=== PATIENT | female | born 1985 | race Caucasian/White ===

== ENCOUNTER 2020-05-18 17:06 | Emergency (ER) | payer OTHER ==
[2020-05-18 17:19] VITALS: BP 115/81; PULSE 96; RESP 18; TEMP 98.2
[2020-05-18] MEDS ORDERED: MORPHINE SULFATE 4 MG/ML SYRINGE IM STA (17:45)
[2020-05-18] MEDS ORDERED: PENICILLIN VK 500MG STARTER 4 TAB BTL PO STA (17:45)
[2020-05-18] MEDS ORDERED: ACET/COD 300 MG/30 MG STARTER PACK 6 TAB BTL PO STA (17:45)
[2020-05-18] MEDS ORDERED: KETOROLAC 15 MG/ML 1 ML VIAL IM STA (17:45)
--- NOTE | 2020-05-18 17:46 | ED ---
ENT HPI - General Chief complaint: Dental/Oral Stated complaint: Tooth pain Time Seen by Provider: 05/18/20 17:23 Source: patient Mode of arrival: ambulatory Limitations: no limitations - History of Present Illness Initial comments: 34-year-old female patient presents to the emergency department today for evaluation of left upper dental pain. Patient states that she's had the pain for the last several days worsening today. States that she is unable to get into her dentist until next week. Patient states she has taken aspirin and Tylenol for pain but has not helping. She denies any trismus or difficulty swallowing. Denies fever or chills. Denies any nausea or vomiting. Patient states she has known broken teeth and needs to have them extracted. - Related Data Previous Rx's Medication Instructions Recorded Naproxen [EC-Naprosyn] 500 mg PO BID PRN #30 tablet. 05/18/20 Penicillin V Potassium [Pen Vee K] 500 mg PO Q6H #40 tablet 05/18/20 Allergies Allergy/AdvReac Type Severity Reaction Status Date / Time No Known Allergies Allergy Verified 05/18/20 17:17 Review of Systems ROS Statement: Those systems with pertinent positive or pertinent negative responses have been documented in the HPI. ROS Other: All systems not noted in ROS Statement are negative. Past Medical History Past Medical History: No Reported History History of Any Multi-Drug Resistant Organisms: None Reported Additional Past Surgical History / Comment(s): Breast reduction Past Psychological History: No Psychological Hx Reported Smoking Status: Current every day smoker Past Alcohol Use History: Occasional Past Drug Use History: None Reported General Exam Limitations: no limitations General appearance: alert, in no apparent distress, other (This is a well- developed, well-nourished adult female patient in no acute distress. Vital signs upon presentation are temperature 98.2F, pulse 96, respirations 18, blood pressure 115/81, pulse ox 98% on room air.) ENT exam: Present: mucous membranes moist, other (Multiple broken teeth. Mild gingival erythema or hyperplasia. No evidence of drainable abscess to). Absent: normal exam Respiratory exam: Present: normal lung sounds bilaterally. Absent: respiratory distress, wheezes, rales, rhonchi, stridor Cardiovascular Exam: Present: regular rate, normal rhythm, normal heart sounds. Absent: systolic murmur, diastolic murmur, rubs, gallop, clicks Neurological exam: Present: alert, oriented X3, CN II-XII intact Psychiatric exam: Present: normal affect, normal mood Skin exam: Present: warm, dry, intact, normal color. Absent: rash Course Vital Signs 05/18/20 17:13 Temperature 98.2 F Pulse Rate 96 Respiratory 18 Rate Blood Pressure 115/81 O2 Sat by Pulse 98 Oximetry Medical Decision Making - Medical Decision Making 34-year-old female patient presented to the emergency department today for evaluation of left upper dental pain. Physical exam did reveal poor dentition with mild gingival erythema and hyperplasia. We'll start pen VK. She is given pain medication here. She is instructed follow up with her dentist as soon as possible. Return parameters were discussed in detail. She verbalizes understanding and agrees with this plan. Disposition Clinical Impression: Pain, dental Disposition: HOME SELF-CARE Condition: Good Instructions (If sedation given, give patient instructions): Dental Abscess (ED), Toothache (ED) Additional Instructions: Take medications as directed. Follow-up with dentistry as soon as possible. Return to the emergency department immediately for any new, worsening, or concerning symptoms. Prescriptions: Naproxen [EC-Naprosyn] 500 mg PO BID PRN #30 tablet.dr GARBER Reason: Pain Penicillin V Potassium [Pen Vee K] 500 mg PO Q6H #40 tablet Is patient prescribed a controlled substance at d/c from ED?: No Referrals: None,Stated [Primary Care Provider] - 1-2 days Time of Disposition: 17:46
== END 2020-05-18 17:59 | disposition home or self-care (01) ==
LOC: EC 17:06
DX: K08.89 Other specified disorders of teeth and supporting structures (principal); K06.1 Gingival enlargement; F17.200 Nicotine dependence, unspecified, uncomplicated
CPT/HCPCS: 99282; 96372 ×2; J2270; J1885

== ENCOUNTER 2020-07-31 06:02 | Emergency (ER) | payer OTHER ==
[2020-07-31 06:14] VITALS: BP 137/84; PULSE 79; RESP 18; TEMP 97.8
[2020-07-31] MEDS ORDERED: LORazepam 1 MG TAB PO STA (06:25)
--- NOTE | 2020-07-31 06:36 | ED ---
Anxiety HPI - General Chief Complaint: Anxiety Stated Complaint: Anxiety Time Seen by Provider: 07/31/20 06:18 Source: patient Mode of arrival: ambulatory - History of Present Illness Initial Comments: 34-year-old female presented for chief complaint of possible panic attack. Patient states she circles her PTSD and panic disorder. She states she has no medications currently or mental health follow-up. Denies suicidal or homicidal ideations, states during her panic attacks she feels like she is going to , racing thoughts, feels like she cant breath. Patient states that has been ongoing this evening, she states if feels very typical of her attacks. Denies additional concerns complaints. Denies hx of DVT/PE, leg swelling, exogenous hormone use, cancer, IVDU, recent travel/injury or immobilization. She appears well nontoxic. - Related Data Home Medications: Previous Rx's Medication Instructions Recorded Naproxen [EC-Naprosyn] 500 mg PO BID PRN #30 tablet. 05/18/20 Penicillin V Potassium [Pen Vee K] 500 mg PO Q6H #40 tablet 05/18/20 Allergies/Adverse Reactions: Allergies Allergy/AdvReac Type Severity Reaction Status Date / Time No Known Allergies Allergy Verified 05/18/20 17:17 Review of Systems ROS Statement: Those systems with pertinent positive or pertinent negative responses have been documented in the HPI. ROS Other: All systems not noted in ROS Statement are negative. Past Medical History Past Medical History: No Reported History History of Any Multi-Drug Resistant Organisms: None Reported Additional Past Surgical History / Comment(s): Breast reduction Past Psychological History: Anxiety, Depression, PTSD Smoking Status: Current every day smoker Past Alcohol Use History: Occasional Past Drug Use History: None Reported General Exam - General Exam Comments Initial Comments: General: The patient is awake and alert, in no distress, and does not appear acutely ill. Eye: Pupils are equal, round and reactive to light, extra-ocular movements are intact. No nystagmus. There is normal conjunctiva bilaterally. No signs of icterus. Ears, nose, mouth and throat: There are moist mucous membranes and no oral lesions. Neck: The neck is supple, there is no tenderness or JVD. Cardiovascular: There is a regular rate and rhythm. No murmur, rub or gallop is appreciated. Respiratory: Lungs are clear to auscultation, respirations are non-labored, breath sounds are equal. No wheezes, stridor, rales, or rhonchi..] Musculoskeletal: Normal ROM, no tenderness. Strength 5/5. Sensation intact. Pulses equal bilaterally 2+. Neurological: A&O x 3. CN II-XII intact grossly, There are no obvious motor or sensory deficits. Coordination appears grossly intact. Speech is normal. Skin: Skin is warm and dry and no rashes or lesions are noted. Psychiatric: Cooperative, appropriate mood & affect, normal judgment. Limitations: no limitations Course Vital Signs 07/31/20 06:07 Temperature 97.8 F Pulse Rate 79 Respiratory 18 Rate Blood Pressure 137/84 O2 Sat by Pulse 98 Oximetry Medical Decision Making - Medical Decision Making 34yo female prsenting for cc of anxiety attack. hx of panic d/o. no meds currently [place] Denies other concerns presented for symptomatic treatment. EKG no specific findings. NO arrythmia. Patient case discussed with Dr. Hernández-pt discharged appearing well. Disposition Clinical Impression: Anxiety, History of posttraumatic stress disorder (PTSD), History of panic attacks Disposition: HOME SELF-CARE Condition: Good Instructions (If sedation given, give patient instructions): Generalized Anxiety Disorder (ED) Additional Instructions: Please use medication as discussed. Please follow-up with family doctor in the next 2 days. Please return to emergency room if the symptoms increase or worsen or for any other concerns. Is patient prescribed a controlled substance at d/c from ED?: No Referrals: None,Stated [Primary Care Provider] - [facility] Time of Disposition: 06:36
== END 2020-07-31 06:51 | disposition home or self-care (01) ==
LOC: EC 06:02
DX: F41.9 Anxiety disorder, unspecified (principal); F17.200 Nicotine dependence, unspecified, uncomplicated; Z86.59 Personal history of other mental and behavioral disorders
CPT/HCPCS: 93005; 99283

== ENCOUNTER 2020-07-31 20:58 | Emergency (ER) | payer OTHER ==
[2020-07-31 21:05] VITALS: BP 140/94; PULSE 104; RESP 18; TEMP 97.1
[2020-07-31] MEDS ORDERED: LORazepam 1 MG TAB PO STA ×2 (21:21→21:24)
--- NOTE | 2020-07-31 21:24 | ED ---
General Adult HPI - General Chief complaint: Anxiety Stated complaint: Anxiey Time Seen by Provider: 07/31/20 21:08 Source: patient, family, RN notes reviewed Mode of arrival: ambulatory Limitations: no limitations - History of Present Illness Initial comments: Patient is a pleasant 34-year-old female presenting to the emergency Department with complaints of anxiety. Onset of symptoms was yesterday. Patient came to the ER and received Ativan and was feeling better and slept for around 4 hours. Patient has had some increased anxiety again since that time. Patient does have history of chronic anxiety similar however this is lasting longer than normal. Patient does have an appointment with her doctor however cannot get in for another 6 days. - Related Data Previous Rx's Medication Instructions Recorded Naproxen [EC-Naprosyn] 500 mg PO BID PRN #30 tablet. 05/18/20 Penicillin V Potassium [Pen Vee K] 500 mg PO Q6H #40 tablet 05/18/20 Allergies Allergy/AdvReac Type Severity Reaction Status Date / Time No Known Allergies Allergy Verified 07/31/20 21:05 Review of Systems ROS Statement: Those systems with pertinent positive or pertinent negative responses have been documented in the HPI. ROS Other: All systems not noted in ROS Statement are negative. Constitutional: Denies: fever Eyes: Denies: eye pain ENT: Denies: ear pain Respiratory: Denies: cough Cardiovascular: Denies: chest pain Endocrine: Denies: fatigue Gastrointestinal: Denies: abdominal pain Musculoskeletal: Denies: back pain Skin: Denies: rash Neurological: Denies: weakness Psychiatric: Reports: anxiety Past Medical History Past Medical History: No Reported History History of Any Multi-Drug Resistant Organisms: None Reported Additional Past Surgical History / Comment(s): Breast reduction Past Psychological History: Anxiety, Depression, PTSD Smoking Status: Current every day smoker Past Alcohol Use History: Occasional Past Drug Use History: None Reported General Exam Limitations: no limitations General appearance: alert, in no apparent distress Head exam: Present: normocephalic Eye exam: Present: normal appearance Respiratory exam: Present: normal lung sounds bilaterally Cardiovascular Exam: Present: regular rate, normal rhythm GI/Abdominal exam: Present: soft. Absent: tenderness Extremities exam: Present: normal inspection Neurological exam: Present: alert Psychiatric exam: Present: other (Patient does appear mildly anxious) Skin exam: Present: normal color Course Vital Signs 07/31/20 21:01 Temperature 97.1 F L Pulse Rate 104 H Respiratory 18 Rate Blood Pressure 140/94 O2 Sat by Pulse 98 Oximetry Medical Decision Making - Medical Decision Making Patient and spouse are receptive to receiving a dose of oral Ativan and a second one to take home with them she needs tomorrow. Disposition Clinical Impression: Anxiety Disposition: HOME SELF-CARE Condition: Stable Instructions (If sedation given, give patient instructions): Generalized Anxiety Disorder (ED) Additional Instructions: Please follow-up with primary care physician as scheduled. Please call to try to obtain earlier appointment. Return for thoughts of self-harm, worsening symptoms or other concerns. Is patient prescribed a controlled substance at d/c from ED?: No Referrals: Lamin Delacruz [STAFF PHYSICIAN] - 1-2 days Time of Disposition: 21:24
== END 2020-07-31 21:42 | disposition home or self-care (01) ==
LOC: EC 20:58
DX: F41.9 Anxiety disorder, unspecified (principal); F17.200 Nicotine dependence, unspecified, uncomplicated
CPT/HCPCS: 99283

== ENCOUNTER 2020-08-04 18:52 | Emergency (ER) | payer OTHER ==
[2020-08-04 19:00] VITALS: BP 147/98; PULSE 74; RESP 18; TEMP 98.3
--- NOTE | 2020-08-04 19:30 | ED ---
General Adult HPI - General Chief complaint: Psychiatric Symptoms Stated complaint: Anxiety Attacks Time Seen by Provider: 08/04/20 19:03 Source: patient Mode of arrival: ambulatory Limitations: no limitations - History of Present Illness Initial comments: 34-year-old female patient presents to the emergency department today for evaluation of increased anxiety and panic attacks. Patient states she is currently living with her father which is causing a lot of stress and anxiety. He states they are working on leaving the home and will be doing so within the next week or 2. Patient states over the weekend she started to have increased general anxiety, nightmares, and panic attacks. Patient states her symptoms are lasting days. In the past she has been diagnosed with anxiety for her symptoms are only last for approximately an hour. Patient denies taking any current medication for her symptoms. States she was in the emergency department twice for this last weekend she was given Ativan which did seem to help her symptoms. States that she did call psychiatrist and they wanted to have her possibly admitted for control of symptoms though she doesn't believe this is necessary. He states that there are other recommendation was to follow-up with the primary care physician which she does have an appointment on Friday. Patient denies any current suicidal or homicidal ideation. States that she is unable to handle the panic symptoms and is requesting possible prescription for anxiety. Patient denies any recent rash, fever, chills, cough, shortness of breath, chest pain, abdominal pain, nausea, vomiting, diarrhea, constipation, back pain, numbness, tingling, dizziness, weakness, hematuria, dysuria, urinary urgency, urinary frequency, headache, visual changes, or any other complaints. - Related Data Home Medications Medication Instructions Recorded Confirmed Relaxia Supplement 1 tab PO DAILY 07/31/20 07/31/20 Valerian Root 100 mg PO DAILY 07/31/20 07/31/20 Previous Rx's Medication Instructions Recorded LORazepam [Ativan] 1 mg PO TID PRN 3 Days #9 tab 08/04/20 Allergies Allergy/AdvReac Type Severity Reaction Status Date / Time No Known Allergies Allergy Verified 08/04/20 19:00 Review of Systems ROS Statement: Those systems with pertinent positive or pertinent negative responses have been documented in the HPI. ROS Other: All systems not noted in ROS Statement are negative. Past Medical History Past Medical History: No Reported History History of Any Multi-Drug Resistant Organisms: None Reported Additional Past Surgical History / Comment(s): Breast reduction Past Psychological History: Anxiety, Depression, PTSD Smoking Status: Current every day smoker Past Alcohol Use History: Occasional Past Drug Use History: None Reported General Exam Limitations: no limitations General appearance: alert, in no apparent distress, other (This is a well- developed, well-nourished adult female patient in no acute distress. Vital signs upon presentation are temperature 98.3F, pulse 74, respirations 18, blood pressure 147/98, pulse ox 97% on room air.) Respiratory exam: Present: normal lung sounds bilaterally. Absent: respiratory distress, wheezes, rales, rhonchi, stridor Cardiovascular Exam: Present: regular rate, normal rhythm, normal heart sounds. Absent: systolic murmur, diastolic murmur, rubs, gallop, clicks GI/Abdominal exam: Present: soft, normal bowel sounds. Absent: distended, tenderness, guarding, rebound, rigid Neurological exam: Present: alert, oriented X3, CN II-XII intact Psychiatric exam: Present: anxious. Absent: homicidal ideation, suicidal ideation Skin exam: Present: warm, dry, intact, normal color. Absent: rash Course Vital Signs 08/04/20 18:57 Temperature 98.3 F Pulse Rate 74 Respiratory 18 Rate Blood Pressure 147/98 O2 Sat by Pulse 97 Oximetry Medical Decision Making - Medical Decision Making 34-year-old female patient presented to the emergency department today for evaluation of anxiety and panic attacks. Has taken Ativan in the past this has helped. Physical examination is unremarkable. She is not suicidal nor homicidal. She does have an appointment coming up on Friday to discuss possible prescription options. We will give three-day prescription for Ativan. She is instructed to use these sparingly for severe symptoms. Return parameters were discussed in detail. She verbalizes understanding and agrees with this plan. Disposition Clinical Impression: Anxiety, Panic attacks Disposition: HOME SELF-CARE Condition: Good Instructions (If sedation given, give patient instructions): Generalized Anxiety Disorder (ED), Panic Attack (ED) Additional Instructions: Take medications as directed. Follow-up with your physician as you have planned. Return to the emergency department immediately for any new, worsening, or concerning symptoms. Prescriptions: LORazepam [Ativan] 1 mg PO TID PRN 3 Days #9 tab PRN Reason: Anxiety Is patient prescribed a controlled substance at d/c from ED?: Yes When asked, does pt state using other controlled substances?: No If prescribed controlled substance>3 days was MAPS reviewed?: Prescribed <3 Days Referrals: None,Stated [Primary Care Provider] - 1-2 days Time of Disposition: 19:30
== END 2020-08-04 19:41 | disposition home or self-care (01) ==
LOC: EC 18:52
DX: F41.0 Panic disorder [episodic paroxysmal anxiety] (principal); F17.200 Nicotine dependence, unspecified, uncomplicated
CPT/HCPCS: 99283

== ENCOUNTER 2020-08-20 20:03 | Emergency (ER) | payer OTHER ==
[2020-08-20 20:09] VITALS: BP 118/78; RESP 18; TEMP 98
[2020-08-20] MEDS ORDERED: MORPHINE SULFATE 4 MG/ML SYRINGE IM STA (20:22)
[2020-08-20] MEDS ORDERED: PENICILLIN VK 500MG STARTER 4 TAB BTL PO STA (20:22)
[2020-08-20] MEDS ORDERED: MORPHINE SULFATE 2 MG/ML SYRINGE IV STA (20:23)
[2020-08-20] MEDS ORDERED: ACET/COD 300 MG/30 MG STARTER PACK 6 TAB BTL PO STA (20:24)
--- NOTE | 2020-08-20 20:25 | ED ---
General Adult HPI - General Chief complaint: Dental/Oral Stated complaint: Tooth Pain Time Seen by Provider: 08/20/20 20:10 Source: patient, RN notes reviewed, old records reviewed Mode of arrival: ambulatory Limitations: no limitations - History of Present Illness Initial comments: 34-year-old female patient ED for dental pain. Patient reports that she has a broken left upper molar that has been causing her pain lasts week in particular. She is due to have removed on Friday however the pain is worsening. She denies a chance of any fevers or any other complaints. Systemic: Pt denies fatigue, fever/chills, rash. Pt denies weakness, night sweats, weight loss. Neuro: Pt denies headache, visual disturbances, syncope or pre-syncope. HEENT: Pt denies ocular discharge or irritation, otalgia, rhinorrhea, pharyngitis or notable lymphadenopathy. Cardiopulmonary: Pt denies chest pain, SOB, heart palpitations, dyspnea on exe rtion. Abdominal/GI: Pt denies abdominal pain, n/v/d. : Pt denies dysuria, burning w/ urination, frequency/urgency. Denies new onset urinary or bowel incontinence. MSK: Pt denies myalgia, loss of strength or function in extremities. Neuro: Pt denies new onset weakness, paresthesias. - Related Data Home Medications Medication Instructions Recorded Confirmed Relaxia Supplement 1 tab PO DAILY 07/31/20 07/31/20 Valerian Root 100 mg PO DAILY 07/31/20 07/31/20 Previous Rx's Medication Instructions Recorded LORazepam [Ativan] 1 mg PO TID PRN 3 Days #9 tab 08/04/20 Penicillin V Potassium [Pen Vee K] 500 mg PO QID #40 tablet 08/20/20 Allergies Allergy/AdvReac Type Severity Reaction Status Date / Time No Known Allergies Allergy Verified 08/04/20 19:00 Review of Systems ROS Statement: Those systems with pertinent positive or pertinent negative responses have been documented in the HPI. ROS Other: All systems not noted in ROS Statement are negative. Past Medical History Past Medical History: No Reported History History of Any Multi-Drug Resistant Organisms: None Reported Additional Past Surgical History / Comment(s): Breast reduction Past Psychological History: Anxiety, Depression, PTSD Smoking Status: Current every day smoker Past Alcohol Use History: Occasional Past Drug Use History: None Reported General Exam - General Exam Comments Initial Comments: Constitutional: NAD, AOX3, Pt has pleasant affect. HEENT: NC/AT, trachea midline, neck supple, no lymphadenopathy. External ears appear normal, without discharge. Mucous membranes moist. Eyes PERRLA, EOM intact. There is no scleral icterus. No pallor noted. Poor dentition noted. Left upper back molar is broken down with mild tenderness and erythema around th e gum. No abscess. Cardiopulmonary: RRR, no murmurs, rubs or gallops, no JVD noted. Lungs CTAB in anterior and posterior hudson. No peripheral edema. Abdominal exam: Abdomen soft and non-distended. Neuro: CN II-XII grossly intact. No nuchal rigidity. No raccon eyes, no dixon sign. MSK: Full active ROM in upper and lower extremities, 5/5 stregnth. Limitations: no limitations Course Vital Signs 08/20/20 08/20/20 20:05 20:29 Temperature 98.0 F Pulse Rate 116 H 90 Respiratory 18 Rate Blood Pressure 118/78 O2 Sat by Pulse 97 Oximetry Medical Decision Making - Medical Decision Making 34-year-old female patient ED for evaluation of dental pain. Due to have teeth removed on Friday. Neck: Antibiotics. Physical exam reveals poor dentition tenderness to the tooth no abscess. Patient initiated on penicillin VK will follow-up with primary care provider and dentist and return for any worsening symptoms. Case discussed with Dr. Davis. Disposition Clinical Impression: Pain, dental Disposition: HOME SELF-CARE Condition: Stable Instructions (If sedation given, give patient instructions): Toothache (ED) Additional Instructions: Follow up with PCP and dentist tomorrow. Take antibiotics as directed. May use Tylenol #3 tomorrow for pain as needed. Return to ED with any worsening symptoms. Prescriptions: Penicillin V Potassium [Pen Vee K] 500 mg PO QID #40 tablet Is patient prescribed a controlled substance at d/c from ED?: No Referrals: None,Stated [Primary Care Provider] - 1-2 days Lamin Delacruz [STAFF PHYSICIAN] - 1-2 days
[2020-08-20 20:29] VITALS: PULSE 90
[2020-08-20] MEDS ORDERED: MORPHINE SULFATE 2 MG/ML SYRINGE IM STA (20:41)
== END 2020-08-20 21:00 | disposition home or self-care (01) ==
LOC: EC 20:03
DX: K08.89 Other specified disorders of teeth and supporting structures (principal); F17.200 Nicotine dependence, unspecified, uncomplicated
CPT/HCPCS: 99283; 96372; J2270

== ENCOUNTER 2020-09-01 17:05 | Emergency (ER) | payer OTHER ==
[2020-09-01 17:09] VITALS: BP 127/66; PULSE 102; RESP 18; TEMP 98.8
--- NOTE | 2020-09-01 17:27 | ED ---
Anxiety HPI - General Chief Complaint: Anxiety Stated Complaint: Anxiety Time Seen by Provider: 09/01/20 17:18 Source: patient, RN notes reviewed, old records reviewed Mode of arrival: ambulatory - History of Present Illness Initial Comments: 34-year-old female presents to the ER today leads of anxiety. Patient reports that she has been treated for anxiety multiple times in the hospital for the past few months. Patient reports that she is out of her Ativan and she was prescribed. She states that she has no medications to manage her symptoms at home. She states that she does have an upcoming appointment in mid September for follow-up with psychiatry. Patient states she's been having difficult time getting into until that time. Patient reports that she has no suicidal thoughts. She denies any fevers chills about pain nausea or vomiting or physical complaints. - Related Data Home Medications: Home Medications Medication Instructions Recorded Confirmed Relaxia Supplement 1 tab PO DAILY 07/31/20 07/31/20 Valerian Root 100 mg PO DAILY 07/31/20 07/31/20 Previous Rx's Medication Instructions Recorded LORazepam [Ativan] 1 mg PO TID PRN 3 Days #9 tab 08/04/20 Penicillin V Potassium [Pen Vee K] 500 mg PO QID #40 tablet 08/20/20 LORazepam [Ativan] 1 mg PO TID 3 Days #9 tab 09/01/20 Allergies/Adverse Reactions: Allergies Allergy/AdvReac Type Severity Reaction Status Date / Time No Known Allergies Allergy Verified 09/01/20 17:09 Review of Systems ROS Statement: Those systems with pertinent positive or pertinent negative responses have been documented in the HPI. ROS Other: All systems not noted in ROS Statement are negative. Past Medical History Past Medical History: No Reported History History of Any Multi-Drug Resistant Organisms: None Reported Additional Past Surgical History / Comment(s): Breast reduction Past Psychological History: Anxiety, Depression, PTSD Smoking Status: Current every day smoker Past Alcohol Use History: Occasional Past Drug Use History: None Reported General Exam - General Exam Comments Initial Comments: 34-year-old field. Alert and oriented. No acute distress. Limitations: no limitations General appearance: alert, in no apparent distress, anxious Head exam: Present: atraumatic, normocephalic, normal inspection Eye exam: Present: normal appearance, PERRL, EOMI. Absent: scleral icterus, conjunctival injection, periorbital swelling ENT exam: Present: normal exam, mucous membranes moist Neck exam: Present: normal inspection Respiratory exam: Present: normal lung sounds bilaterally Cardiovascular Exam: Present: regular rate, normal rhythm, normal heart sounds. Absent: systolic murmur, diastolic murmur, rubs, gallop, clicks GI/Abdominal exam: Present: soft, normal bowel sounds. Absent: distended, tenderness, guarding, rebound, rigid Extremities exam: Present: normal inspection, full ROM, normal capillary refill. Absent: tenderness, pedal edema, joint swelling, calf tenderness Back exam: Present: normal inspection Neurological exam: Present: alert, oriented X3, CN II-XII intact Psychiatric exam: Present: normal affect, normal mood Skin exam: Present: warm, dry, intact, normal color. Absent: rash Course Vital Signs 09/01/20 17:06 Temperature 98.8 F Pulse Rate 102 H Respiratory 18 Rate Blood Pressure 127/66 O2 Sat by Pulse 98 Oximetry Medical Decision Making - Medical Decision Making Patient is a 34-year-old female presents here today for concern for anxiety. She worsens out of her Ativan medication. Patient at this time has been given 1 dose in the emergency department for acute anxiolysis. I did discuss that she is follow-up with outpatient resources and her appointment in mid September for further prescriptions. Patient is understandable treatment plan will comply. Disposition Clinical Impression: Panic attacks, Acute anxiety Disposition: HOME SELF-CARE Condition: Good Instructions (If sedation given, give patient instructions): Generalized A nxiety Disorder (ED) Additional Instructions: Please use medication as discussed. Please follow up with family doctor if symptoms have not improved over the next two days. Please return to the emergency room if your symptoms increase or worsen or for any other concerns. Prescriptions: LORazepam [Ativan] 1 mg PO TID 3 Days #9 tab Is patient prescribed a controlled substance at d/c from ED?: Yes If prescribed controlled substance>3 days was MAPS reviewed?: Prescribed <3 Days If opioid is for acute pain is fill amount 7 days or less?: Yes If Rx opioid, was Start Talking consent form obtained?: Yes Referrals: None,Stated [Primary Care Provider] - 1-2 days Time of Disposition: 17:26
[2020-09-01] MEDS ORDERED: LORazepam 1 MG TAB PO STA (17:39)
== END 2020-09-01 17:54 | disposition home or self-care (01) ==
LOC: EC 17:05
DX: F41.0 Panic disorder [episodic paroxysmal anxiety] (principal); F17.200 Nicotine dependence, unspecified, uncomplicated
CPT/HCPCS: 99283

== ENCOUNTER 2020-09-16 12:21 | Emergency (ER) | payer OTHER ==
[2020-09-16 12:29] VITALS: BP 130/92; PULSE 95; RESP 18; TEMP 98.3
--- NOTE | 2020-09-16 12:52 | ED ---
Anxiety HPI - General Chief Complaint: Anxiety Stated Complaint: panic attacks Source: patient Mode of arrival: ambulatory - History of Present Illness Initial Comments: Patient is a 34-year-old female with past medical history of anxiety disorder presents emergency room with reported worsening anxiety. She has been seen 4 times in the emergency department since end of July for the same complaint. States she recently just moved to the area, left her family, started a new job. All of these factors are continuing to her anxiety. He does have an appointment to see her primary care doctor on Friday. This was previously scheduled a few weeks ago however she was reportedly busy with work and couldn't make it to the appointments. She has been given 3 prescriptions of Ativan when she comes to the emergency department reports that this has been helping her get through to her appointment. She states she realizes that she needs to see a primary care doctor in regards to other treatment options. Patient is requesting one final prescription to get her through to her appointment on Friday. She denies any suicidal or homicidal ideations. Denies previous hospitalization for mental health. No hallucinations. Patient denies substance abuse disorder. No concern for . No other alleviating, precipitating or modifying factors - Related Data Home Medications: Home Medications Medication Instructions Recorded Confirmed Relaxia Supplement 1 tab PO DAILY 07/31/20 07/31/20 Valerian Root 100 mg PO DAILY 07/31/20 07/31/20 Previous Rx's Medication Instructions Recorded LORazepam [Ativan] 1 mg PO TID PRN 3 Days #9 tab 08/04/20 Penicillin V Potassium [Pen Vee K] 500 mg PO QID #40 tablet 08/20/20 LORazepam [Ativan] 1 mg PO TID 3 Days #9 tab 09/01/20 LORazepam [Ativan] 0.5 mg PO TID 3 Days #9 tab 09/16/20 Allergies/Adverse Reactions: Allergies Allergy/AdvReac Type Severity Reaction Status Date / Time No Known Allergies Allergy Verified 09/16/20 12:29 Review of Systems ROS Statement: Those systems with pertinent positive or pertinent negative responses have been documented in the HPI. ROS Other: All systems not noted in ROS Statement are negative. Past Medical History Past Medical History: No Reported History History of Any Multi-Drug Resistant Organisms: None Reported Additional Past Surgical History / Comment(s): Breast reduction Past Psychological History: Anxiety, Depression, PTSD Smoking Status: Current every day smoker Past Alcohol Use History: Occasional Past Drug Use History: None Reported General Exam Limitations: no limitations Course Vital Signs 09/16/20 12:27 Temperature 98.3 F Pulse Rate 95 Respiratory 18 Rate Blood Pressure 130/92 O2 Sat by Pulse 99 Oximetry Medical Decision Making - Medical Decision Making Upon arrival patient is placed in room 16. A thorough history and physical exam was performed. Patient's urine sample is sent for a test. I did review her previous ER records. I discussed diagnosis, differential treatment options. Informed patient that she should be receiving these prescriptions her primary care office. Patient reports that she does have an appointment on Friday for which I do instruct that she keep this appointment as there are other treatment options available to her. Patient should also be evaluated by a mental health expert. She understood this. She does have a list of resources at home that she was previously prescribed. Patient will be given a three-day prescription for Ativan. Instructed not to take this medication if there is concern for . Not work or drive while taking this medication. She has any new or worsening symptoms she should return to the emergency room. Patient agreed and was discharged home in stable condition Disposition Clinical Impression: Acute anxiety Disposition: HOME SELF-CARE Condition: Stable Instructions (If sedation given, give patient instructions): Generalized Anxiety Disorder (ED) Additional Instructions: Please follow up with your PCP on Friday. They should be the one writing the prescriptions for your anxiety. Return to the ED for any new or worsening symptoms. Prescriptions: LORazepam [Ativan] 0.5 mg PO TID 3 Days #9 tab Is patient prescribed a controlled substance at d/c from ED?: Yes When asked, does pt state using other controlled substances?: No If prescribed controlled substance>3 days was MAPS reviewed?: Prescribed <3 Days Referrals: None,Stated [Primary Care Provider] - 1-2 days Time of Disposition: 13:13
[2020-09-16] MEDS ORDERED: LORazepam 1 MG TAB PO STA (13:06)
== END 2020-09-16 13:23 | disposition home or self-care (01) ==
LOC: EC 12:21
DX: F41.9 Anxiety disorder, unspecified (principal); F17.200 Nicotine dependence, unspecified, uncomplicated; Z79.899 Other long term (current) drug therapy
CPT/HCPCS: 81025; 99283

== ENCOUNTER 2020-09-27 00:24 | Emergency (ER) | payer OTHER ==
[2020-09-27 00:39] VITALS: RESP 20
[2020-09-27] MEDS ORDERED: KETOROLAC 15 MG/ML 1 ML VIAL IM STA (00:52)
[2020-09-27] MEDS ORDERED: ACET/COD 300 MG/30 MG STARTER PACK 6 TAB BTL PO STA (00:52)
--- NOTE | 2020-09-27 00:52 | ED ---
ENT HPI - General Chief complaint: Dental/Oral Stated complaint: Dental Abscess Time Seen by Provider: 09/27/20 00:33 Source: patient Mode of arrival: ambulatory Limitations: no limitations - History of Present Illness Initial comments: Patient is a 34-year-old female presenting to emergency Department with complaints of left-sided dental pain that started this morning. Patient states she has an appointment with her dentist in 2 days. She denies any fever or chills, no nausea or vomiting. She states that she has had this issue in the past. She did try some ibuprofen this morning without any improvement in her pain. She denies being . She has no further complaints. - Related Data Home Medications Medication Instructions Recorded Confirmed Relaxia Supplement 1 tab PO DAILY 07/31/20 07/31/20 Valerian Root 100 mg PO DAILY 07/31/20 07/31/20 Previous Rx's Medication Instructions Recorded LORazepam [Ativan] 1 mg PO TID PRN 3 Days #9 tab 08/04/20 Penicillin V Potassium [Pen Vee K] 500 mg PO QID #40 tablet 08/20/20 LORazepam [Ativan] 1 mg PO TID 3 Days #9 tab 09/01/20 LORazepam [Ativan] 0.5 mg PO TID 3 Days #9 tab 09/16/20 Penicillin V Potassium [Pen Vee K] 500 mg PO QID 7 Days #28 tablet 09/27/20 Allergies Allergy/AdvReac Type Severity Reaction Status Date / Time No Known Allergies Allergy Verified 09/27/20 00:39 Review of Systems ROS Statement: Those systems with pertinent positive or pertinent negative responses have been documented in the HPI. ROS Other: All systems not noted in ROS Statement are negative. Past Medical History Past Medical History: No Reported History History of Any Multi-Drug Resistant Organisms: None Reported Additional Past Surgical History / Comment(s): Breast reduction Past Psychological History: Anxiety, Depression, PTSD Smoking Status: Current every day smoker Past Alcohol Use History: Occasional Past Drug Use History: None Reported General Exam - General Exam Comments Initial Comments: GENERAL: Patient is well-developed and well-nourished. Patient is nontoxic and in mild distress. HEAD: Atraumatic, normocephalic. EYES: Pupils equal round and reactive to light, extraocular movements intact, sclera anicteric, conjunctiva are normal. Eyelids were unremarkable. ENT: TMs normal, nares patent, oropharynx clear without exudates. Moist mucous membranes. There is some mild erythema of the left upper gumline, no visible dental abscess seen, pain with tooth #26. NECK: Normal range of motion, supple without lymphadenopathy or JVD. LUNGS: Unlabored respirations. Breath sounds clear to auscultation bilaterally and equal. No wheezes rales or rhonchi. HEART: Regular rate and rhythm without murmurs, rubs or gallops. ABDOMEN: Soft, nontender, normoactive bowel sounds. No guarding, no rebound. No masses appreciated. : Deferred MUSCULOSKELETAL: Normal extremities with adequate strength and normal range of motion, no pitting or edema. No clubbing or cyanosis. NEUROLOGICAL: Patient is alert and oriented x 3. Motor and sensory are also intact. Symmetrical smile. Normal speech, normal gait. PSYCH: Normal mood, normal affect. SKIN: Warm, Dry, normal turgor, no rashes or lesions noted. Limitations: no limitations Course Vital Signs 09/27/20 09/27/20 00:32 01:13 Temperature 99.1 F 99.0 F Pulse Rate 120 H 100 Respiratory 20 20 Rate Blood Pressure 146/87 137/77 O2 Sat by Pulse 96 98 Oximetry Medical Decision Making - Medical Decision Making Patient is a 34-year-old female here with left-sided dental pain that started this morning. She does have point with her dentist in 2 days. No fevers or chills, or vitals are stable. She is in some mild erythema of the left upper gumline, no visible dental abscess seen. I will start her on some antibiotics, give her Toradol injection the ER. She is stable for discharge. She'll follow up with Marlen[facility]. She is in agreement with this plan of care. Disposition Clinical Impression: Pain, dental, Dental abscess Disposition: HOME SELF-CARE Condition: Stable Instructions (If sedation given, give patient instructions): Dental Abscess (ED) Additional Instructions: Please return to the Emergency Department if symptoms worsen or any other concerns. Take antibiotic as prescribed. Alternate between Tylenol and Motrin for discomfort. Follow with your dentist as discussed. Prescriptions: Penicillin V Potassium [Pen Vee K] 500 mg PO QID 7 Days #28 tablet Is patient prescribed a controlled substance at d/c from ED?: No Referrals: Rashaun Ibarra MD [Primary Care Provider] - 1-2 days
[2020-09-27] MEDS ORDERED: PENICILLIN V POTASSIUM 250 MG TAB PO ONE (01:00)
[2020-09-27 01:14] VITALS: BP 137/77; PULSE 100; TEMP 99
== END 2020-09-27 01:13 | disposition home or self-care (01) ==
LOC: EC 00:24
DX: K04.7 Periapical abscess without sinus (principal); F17.200 Nicotine dependence, unspecified, uncomplicated; F41.9 Anxiety disorder, unspecified; F32.9 Major depressive disorder, single episode, unspecified; F43.10 Post-traumatic stress disorder, unspecified; Z79.899 Other long term (current) drug therapy
CPT/HCPCS: 99283; 96372; J1885

== ENCOUNTER 2020-11-22 00:58 | Emergency (ER) | payer OTHER ==
[2020-11-22 01:05] VITALS: BP 135/87; PULSE 99; RESP 20; TEMP 98.1
[2020-11-22] MEDS ORDERED: SODIUM CHLORIDE 0.9% 1,000 ML IV STA (01:21)
[2020-11-22] MEDS ORDERED: LORazepam 2 MG/ML INJ IV STA (01:21)
--- NOTE | 2020-11-22 01:52 | ED ---
General Adult HPI - General Chief complaint: Anxiety Stated complaint: Anxiety Time Seen by Provider: 11/22/20 01:20 Source: patient, RN notes reviewed Mode of arrival: ambulatory Limitations: no limitations - History of Present Illness Initial comments: Patient is a 34-year-old female presents to emergency department with alcohol intoxication anxiety. She'll that she's been try to find a rehab facility but her insurance won't cover any. She notes that she turns to alcohol to cope with her anxiety. She notes that she does take Paxil but notes that it makes her feel weird and outside of her body. She notes that she stick Ativan and noted that at work for a short time. She denied any pain at this time. She noted that she was in no pain or discomfort or distress while sitting up in bed during exam. She denied any chest pain shortness of breath headache nausea vomiting diarrhea constipation fever fatigue chills - Related Data Home Medications Medication Instructions Recorded Confirmed Relaxia Supplement 1 tab PO DAILY 07/31/20 07/31/20 Valerian Root 100 mg PO DAILY 07/31/20 07/31/20 Previous Rx's Medication Instructions Recorded LORazepam [Ativan] 1 mg PO TID PRN 3 Days #9 tab 08/04/20 Penicillin V Potassium [Pen Vee K] 500 mg PO QID #40 tablet 08/20/20 LORazepam [Ativan] 1 mg PO TID 3 Days #9 tab 09/01/20 LORazepam [Ativan] 0.5 mg PO TID 3 Days #9 tab 09/16/20 Penicillin V Potassium [Pen Vee K] 500 mg PO QID 7 Days #28 tablet 09/27/20 Allergies Allergy/AdvReac Type Severity Reaction Status Date / Time No Known Allergies Allergy Verified 11/22/20 01:05 Review of Systems ROS Statement: Those systems with pertinent positive or pertinent negative responses have been documented in the HPI. ROS Other: All systems not noted in ROS Statement are negative. Past Medical History Past Medical History: No Reported History History of Any Multi-Drug Resistant Organisms: None Reported Additional Past Surgical History / Comment(s): Breast reduction, D&C Past Psychological History: Anxiety, Depression, PTSD Smoking Status: Current every day smoker Past Alcohol Use History: Abuse, Daily, Heavy Past Drug Use History: None Reported General Exam Limitations: no limitations General appearance: alert, in no apparent distress Head exam: Present: atraumatic, normocephalic, normal inspection Eye exam: Present: normal appearance, PERRL, EOMI. Absent: scleral icterus, conjunctival injection, periorbital swelling ENT exam: Present: normal exam, mucous membranes moist Neck exam: Present: normal inspection. Absent: tenderness, meningismus, lymphadenopathy Respiratory exam: Present: normal lung sounds bilaterally. Absent: respiratory distress, wheezes, rales, rhonchi, stridor Cardiovascular Exam: Present: regular rate, normal rhythm, normal heart sounds. Absent: systolic murmur, diastolic murmur, rubs, gallop, clicks GI/Abdominal exam: Present: soft, normal bowel sounds. Absent: distended, tenderness, guarding, rebound, rigid Extremities exam: Present: normal inspection, full ROM, normal capillary refill. Absent: tenderness, pedal edema, joint swelling, calf tenderness Back exam: Present: normal inspection Neurological exam: Present: alert, oriented X3, CN II-XII intact Psychiatric exam: Present: normal affect, normal mood Skin exam: Present: warm, dry, intact, normal color. Absent: rash Course Vital Signs 11/22/20 01:02 Temperature 98.1 F Pulse Rate 99 Respiratory 20 Rate Blood Pressure 135/87 O2 Sat by Pulse 95 Oximetry Medical Decision Making - Medical Decision Making 34-year-old female with alcohol intoxication anxiety. Labs, 2 mg of Ativan ordered. Case discussed with Dr. Hernández, patient can discharge home with paperwork for rehab. Disposition Clinical Impression: Acute anxiety, Alcohol abuse, Alcohol intoxication Disposition: HOME SELF-CARE Condition: Stable Instructions (If sedation given, give patient instructions): Generalized Anxiety Disorder (ED) Additional Instructions: Please return to the Emergency Department if symptoms worsen or any other concerns. Follow-up with primary care in 2-4 days. Take at home prescriptions as directed. Names and phone numbers of rehab facilities given Is patient prescribed a controlled substance at d/c from ED?: No Referrals: None,Stated [Primary Care Provider] - 1-2 days Time of Disposition: 01:52
[2020-11-22 01:54] LABS: Basophils % (A) 1 %; Eosinophils # (A) 0.2 k/uL (0-0.7); Eosinophils % (A) 4 %; HCT 39.9 % (34.0-46.0); HGB 13.9 gm/dL (11.4-16.0); Lymphocytes # (A) 2.6 k/uL (1.0-4.8); Lymphocytes % (A) 57 %; MCH 31.7 pg (25.0-35.0); MCHC 34.7 g/dL (31.0-37.0); MCV 91.3 fL (80.0-100.0); Mean Platelet Volume 6.9; Monocytes # (A) 0.2 k/uL (0-1.0); Monocytes % (A) 4 %; Neutrophils # (A) 1.4 k/uL (1.3-7.7); Neutrophils % (A) 31 %; Platelet Count 191 k/uL (150-450); RBC 4.38 m/uL (3.80-5.40); RDW 13.1 % (11.5-15.5); WBC 4.6 k/uL (3.8-10.6)
[2020-11-22 02:03] LABS: Appearance,Urine Clear (Clear); Bilirubin,Urine 1+ (Negative); Blood,Urine Negative (Negative); Color,Urine Yellow; Glucose,Urine (UA) Negative (Negative); Ketones,Urine Negative (Negative); Leukocyte Esterase,Urine Negative (Negative); Nitrite,Urine Negative (Negative); Protein,Urine Negative (Negative); Specific Gravity,Urine 1.011 (1.001-1.035); Urobilinogen,Urine <2.0 mg/dL (<2.0)
[2020-11-22 03:02] LABS: ALT 25 U/L (4-34); African American GFR (CKD) >90 (>60 ml/min/1.73 sqM); Anion Gap 15 mmol/L; Blood Urea Nitrogen 7 mg/dL (7-17); Calcium 9.6 mg/dL (8.4-10.2); Carbon Dioxide 26 mmol/L (22-30); Chloride 105 mmol/L (98-107); Glucose 94 mg/dL (74-99); Non-African American GFR(CKD) >90 (>60 ml/min/1.73 sqM); Sodium 146 mmol/L (137-145); Total Bilirubin 0.8 mg/dL (0.2-1.3)
[2020-11-22 03:26] LABS: Albumin 5.1 g/dL (3.5-5.0); Alcohol 278 mg/dL; Potassium 4.9 mmol/L (3.5-5.1); Total Protein 9.3 g/dL (6.3-8.2)
[2020-11-22 03:27] LABS: AST 57 U/L (14-36); Alkaline Phosphatase 48 U/L (38-126)
== END 2020-11-22 02:08 | disposition home or self-care (01) ==
LOC: EC 00:58
DX: F41.9 Anxiety disorder, unspecified (principal); F10.129 Alcohol abuse with intoxication, unspecified; F17.200 Nicotine dependence, unspecified, uncomplicated; F32.9 Major depressive disorder, single episode, unspecified; F43.10 Post-traumatic stress disorder, unspecified
CPT/HCPCS: 82075; 36415; 80053; 85025; 81003; 99283; 96374; G0480; J2060; 80320

== ENCOUNTER 2020-11-24 05:06 | Emergency (ER) | payer OTHER ==
[2020-11-24 05:18] VITALS: BP 157/97; PULSE 58; RESP 18; TEMP 98
--- NOTE | 2020-11-24 05:47 | ED ---
Anxiety HPI - General Chief Complaint: Shortness of Breath Stated Complaint: Extremity pain,Both hands Time Seen by Provider: 11/24/20 05:12 Source: patient Mode of arrival: ambulatory - Related Data Home Medications: Home Medications Medication Instructions Recorded Confirmed Relaxia Supplement 1 tab PO DAILY 07/31/20 07/31/20 Valerian Root 100 mg PO DAILY 07/31/20 07/31/20 Previous Rx's Medication Instructions Recorded LORazepam [Ativan] 1 mg PO TID PRN 3 Days #9 tab 08/04/20 Penicillin V Potassium [Pen Vee K] 500 mg PO QID #40 tablet 08/20/20 LORazepam [Ativan] 1 mg PO TID 3 Days #9 tab 09/01/20 LORazepam [Ativan] 0.5 mg PO TID 3 Days #9 tab 09/16/20 Penicillin V Potassium [Pen Vee K] 500 mg PO QID 7 Days #28 tablet 09/27/20 Zolpidem Tartrate [Ambien Cr] 6.25 mg PO HS PRN 3 Days #3 tab 11/24/20 Allergies/Adverse Reactions: Allergies Allergy/AdvReac Type Severity Reaction Status Date / Time No Known Allergies Allergy Verified 11/24/20 05:19 Review of Systems ROS Statement: Those systems with pertinent positive or pertinent negative responses have been documented in the HPI. ROS Other: All systems not noted in ROS Statement are negative. Past Medical History Past Medical History: No Reported History History of Any Multi-Drug Resistant Organisms: None Reported Additional Past Surgical History / Comment(s): Breast reduction, D&C Past Psychological History: Anxiety, Depression, PTSD Smoking Status: Current every day smoker Past Alcohol Use History: Abuse, Daily, Heavy Past Drug Use History: None Reported General Exam Limitations: physical limitation Course Vital Signs 11/24/20 05:12 Temperature 98 F Pulse Rate 58 L Respiratory 18 Rate Blood Pressure 157/97 O2 Sat by Pulse 96 Oximetry Disposition Clinical Impression: Acute anxiety, Alcohol abuse, Insomnia Disposition: HOME SELF-CARE Condition: Good Instructions (If sedation given, give patient instructions): Insomnia (ED) Prescriptions: Zolpidem Tartrate [Ambien Cr] 6.25 mg PO HS PRN 3 Days #3 tab PRN Reason: Insomnia Is patient prescribed a controlled substance at d/c from ED?: No Referrals: None,Stated [Primary Care Provider] - 1-2 days
[2020-11-24] MEDS ORDERED: diazePAM 5 MG TAB PO STA (06:19)
== END 2020-11-24 06:32 | disposition home or self-care (01) ==
LOC: EC 05:06
DX: F41.9 Anxiety disorder, unspecified (principal); G47.00 Insomnia, unspecified; F17.200 Nicotine dependence, unspecified, uncomplicated; F10.10 Alcohol abuse, uncomplicated; F32.9 Major depressive disorder, single episode, unspecified
CPT/HCPCS: 99283